=== PATIENT | female | born 1955 | race Caucasian/White ===

== ENCOUNTER 2017-02-24 11:10 | Outpatient (CLI) | payer OTHER ==
--- NOTE | 2017-02-24 13:37 | RAD ---
RADIOGRAPH CHEST 2 VIEWS: Date: 02-24-17 Time: 11:42 a.m. HISTORY: 61-year-old female with acute dyspnea. COMPARISON: None available. FINDINGS: There are plate like densities at the right lower lobe and lingula, consistent with subsegmental ate lectasis. There is widening of the right mediastinum, displacing the trachea to the left. No cardiom egaly, pulmonary edema, pleural effusion or pneumothorax. IMPRESSION: 1. Widening of the right mediastinum, causing tracheal deviation. This is suspicious for a right med iastinal mass. Recommend further evaluation with CT of the chest (preferably with IV contrast unless contraindicated). 2. Subsegmental atelectasis at the lung bases. Code T JN POS: [facility]
--- NOTE | 2017-02-24 13:56 | RAD ---
RADIOGRAPH RIGHT SHOULDER THREE VIEWS: HISTORY: A 61-year-old female with right shoulder pain. No mention of trauma. FINDINGS: Moderate DJD of the AC joint. No high grade DJD identified at the glenohumeral joint. No fracture, dislocation, or subluxation. No rotator cuff calcifications identified. IMPRESSION: 1. 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 2. No fracture. POS: [facility]
== END 2017-02-24 11:11 | disposition home or self-care (01) ==
LOC: MADRAD 11:10
PROVIDERS: ATTEND Family Medicine
DX: M54.9 Dorsalgia, unspecified (principal); M19.011 Primary osteoarthritis, right shoulder; J98.11 Atelectasis
CPT/HCPCS: 71020

== ENCOUNTER 2017-02-26 11:29 | Outpatient (CLI) | payer OTHER ==
[2017-02-26 12:13] LABS: Calc. Creatinine Clearance 0 mL/min (70-130); Estimated GFR-MDRD Greater than 90
== END 2017-02-26 11:30 | disposition home or self-care (01) ==
LOC: MADLAB 11:29
PROVIDERS: ATTEND Specialist
DX: R22.2 Localized swelling, mass and lump, trunk (principal)
CPT/HCPCS: 36415; 82565